=== PATIENT | male | born 1935 | race Caucasian/White ===

== ENCOUNTER 2024-06-03 12:32 | Outpatient (CLI) | payer MEDICARE, SELFPAY ==
[2024-06-03 14:58] LABS: Blood Urea Nitrogen 16 mg/dl (9-20); Estimated Glomerular Filt Rate 57 ml/min (>60); GFR (African American) 69 ML/MIN (>60)
[2024-06-04 12:42] LABS: PSA, Free <0.02 ng/mL; Prostate Specific Ag <0.1 ng/mL (0.0-4.0)
== END 2024-06-03 23:59 | disposition home or self-care (01) ==
LOC: LAB 12:37
PROVIDERS: Visit Provider Urology
DX: C61 Malignant neoplasm of prostate (principal); N32.81 Overactive bladder
CPT/HCPCS: 36415; 82565; 84153; 84154; 84520

== ENCOUNTER 2024-07-05 09:46 | Day surgery (SDC) | payer MEDICARE, SELFPAY ==
[2024-07-05 10:08] VITALS: BP 164/94; PULSE 55; RESP 18; TEMP 36.2; O2SAT 98; BMI 28.5
[2024-07-05] MEDS: 0.9 % SODIUM CHLORIDE 500 ML 25 ML IV (10:28)
[2024-07-05] MEDS: LIDOCAINE 2% UROJET 10ML 10 ML (10:28)
--- NOTE | 2024-07-05 10:30 | [facility].PROCNOTE ---
[facility] Procedure Note Date: 07/05/24 Time: 10:30 Procedure Note:: Chart review: In 1998 the patient underwent brachytherapy for prostate cancer. His PSA is less than 0.1 on 06/14. He is troubled with overactive bladder. He is here for cystoscopy to see if he has bladder outlet obstruction and perhaps scar tissue from the brachii therapy. He has been refractory to anticholinergic and Myrbetriq. Preop diagnosis: Overactive bladder with enuresis Operative note: The patient was brought to the cystoscopy suite. He is prepped in the standard fashion. He underwent flexible cystoscopy. At the membranous urethral level the patient has what appears to be a urethral stricture and I did not try to negotiate past this point as the tissue seems to be friable and he very well may need a more formal internal urethrotomy which we cannot do at [facility]. So we are going to need a urology consultation at the [facility] and I will make those arrangements. Postop diagnosis: Overactive bladder with enuresis: Urethral stricture.
[2024-07-05 10:33] VITALS: BP 193/87; PULSE 54; RESP 19; TEMP 36.3; O2SAT 98
== END 2024-07-05 10:41 | disposition home or self-care (01) ==
PROVIDERS: PCP Family Medicine; Visit Provider Urology
PROC: 0TJB8ZZ Inspection of Bladder, Via Natural or Artificial Opening Endoscopic (ICD-10-PCS; CPT 52000; principal; 2024-07-05 10:30)
DX: Z85.46 Personal history of malignant neoplasm of prostate (principal); N32.81 Overactive bladder; R32 Unspecified urinary incontinence; N35.919 Unspecified urethral stricture, male, unspecified site; Z87.891 Personal history of nicotine dependence
CPT/HCPCS: 52000